=== PATIENT | female | born 1985 | race Asian ===

== ENCOUNTER 2016-08-23 05:05 | Emergency (ER) | payer OTHER ==
[2016-08-23 06:56] VITALS: BP 125/85
== END 2016-08-23 06:56 | disposition home or self-care (01) ==
LOC: ED 05:05
DX: G43.909 Migraine, unspecified, not intractable, without status migrainosus (principal)
CPT/HCPCS: J3030

== ENCOUNTER → 2017-05-09 | Outpatient (CLI) | payer OTHER ==
[2017-05-09 11:17] LABS: BASOPHIL % 0.5 % (0-2); PLATELET COUNT 364 x10^3mcL (130-400); RED CELL DISTRIBUTION WIDTH 13.1 % (11.5-14.5)
[2017-05-09 11:44] LABS: ALKALINE PHOSPHATASE 81 U/L (46-116); ALT/SGPT 25 U/L (14-59); AST/SGOT 16 U/L (15-37); BILIRUBIN DIRECT 0.11 mg/dL (0.0-0.2); BILIRUBIN TOTAL 0.4 mg/dL (0.20-1.00); CALCIUM 8.8 mg/dL (8.5-10.1); CARBON DIOXIDE 26.6 mmol/L (21-32); CHLORIDE SERUM 104 mmol/L (98-107); CHOLESTEROL 173 mg/dL (<200); CHOLESTEROL/HDL RATIO 3.4; CREATININE SERUM 0.8 mg/dL (0.6-1.0); FREE T4 1.08 ng/dL (0.76-1.46); GFR1 > 60 mL/min; GLUCOSE SERUM 84 mg/dL (74-106); HDL CHOLESTEROL 51 mg/dL (40-60); POTASSIUM SERUM 3.5 mmol/L (3.5-5.1); SODIUM SERUM 139 mmol/L (136-145); TOTAL PROTEIN, SERUM 7.7 g/dL (6.4-8.2); TRIGLYCERIDES 48 mg/dL (<150)
== END | disposition home or self-care (01) ==
LOC: LB 10:50
PROVIDERS: Internal Medicine
DX: Z00.00 Encounter for general adult medical examination without abnormal findings (principal)
CPT/HCPCS: 84439; 86431